=== PATIENT | male | born 1965 | race Caucasian/White ===

== ENCOUNTER 2016-05-03 15:53 | Outpatient (CLI) | payer MEDICAID | END 2016-05-03 15:54 | disposition home or self-care (01) | DX: H26.9 Unspecified cataract (principal); E10.9 Type 1 diabetes mellitus without complications ==

== ENCOUNTER 2016-10-20 11:23 | Outpatient (CLI) | payer MEDICAID ==
[2016-10-20 12:28] LABS: ALBUMIN/GLOBULIN RATIO 1.3 (1.0-2.2); BILIRUBIN,TOTAL 0.8 mg/dL (0.2-1.0); BUN - BLOOD UREA NITROGEN 12 mg/dL (6-20); CALCIUM 8.9 mg/dL (8.5-10.3); CARBON DIOXIDE - CO2 26 mmol/L (21-32); CHLORIDE 105 mmol/L (101-111); CHOL/HDL RATIO 4.2 (<5.0); CHOLESTEROL 163 mg/dL; CREATININE 0.9 mg/dL (0.6-1.2); GFR - MDRD 89 (>89); GLUCOSE 209 mg/dL (70-100); HDL CHOLESTEROL 39 mg/dL; POTASSIUM 4.4 mmol/L (3.5-5.0); SODIUM 139 mmol/L (135-145); TRIGLYCERIDES 236 mg/dL; VLDL CHOLESTEROL 47 mg/dL
[2016-10-24 23:57] LABS: HSV 1/2 IGM INDEX <0.90 INDEX (()); HSV 2 IGG INDEX <0.90 INDEX (())
== END 2016-10-20 11:24 | disposition home or self-care (01) ==
LOC: LAB 11:23
PROVIDERS: ATTEND Nurse Practitioner Family
DX: Z11.3 Encounter for screening for infections with a predominantly sexual mode of transmission (principal); E10.9 Type 1 diabetes mellitus without complications
CPT/HCPCS: 36415; 80053; 80061; 86694; 86695; 86696; 86803; 87389

== ENCOUNTER 2016-12-07 10:57 | Outpatient (CLI) | payer MEDICAID | END 2016-12-07 10:58 | disposition home or self-care (01) | LOC: LAB 10:57 | PROVIDERS: ATTEND Nurse Practitioner Family | DX: E03.9 Hypothyroidism, unspecified (principal) | CPT/HCPCS: 36415; 84443 ==

== ENCOUNTER 2017-11-27 11:15 | Outpatient (CLI) | payer MEDICAID | END 2017-11-27 11:16 | disposition home or self-care (01) | LOC: SC 11:15 | PROVIDERS: ATTEND Internal Medicine Pulmonary Disease | DX: G47.30 Sleep apnea, unspecified (principal); G47.10 Hypersomnia, unspecified; R06.83 Snoring; G47.8 Other sleep disorders | CPT/HCPCS: 99203; 99212 ==

== ENCOUNTER 2018-01-15 13:14 | Outpatient (CLI) | payer MEDICAID | END 2018-01-15 13:15 | disposition home or self-care (01) | LOC: SC 13:14 | PROVIDERS: ATTEND Internal Medicine Pulmonary Disease | DX: G47.33 Obstructive sleep apnea (adult) (pediatric) (principal) | CPT/HCPCS: 99212; 99213 ==

== ENCOUNTER 2018-04-03 10:12 | Outpatient (CLI) | payer MEDICAID ==
[2018-04-03 10:41] LABS: ALBUMIN 3.8 g/dL (3.2-5.5); ALBUMIN/GLOBULIN RATIO 1.1 (1.0-2.2); ALKALINE PHOSPHATASE 95 IU/L (42-121); ALT ALANINE AMINOTRANSFERASE 16 IU/L (10-60); AST ASPARTATE AMINOTRANSFERASE 21 IU/L (10-42); BILIRUBIN,TOTAL 0.5 mg/dL (0.2-1.0); BUN - BLOOD UREA NITROGEN 13 mg/dL (6-20); CALCIUM 8.8 mg/dL (8.5-10.3); CARBON DIOXIDE - CO2 25 mmol/L (21-32); CHLORIDE 103 mmol/L (101-111); CHOL/HDL RATIO 3.1 (<5.0); CHOLESTEROL 120 mg/dL; CREATININE 1.1 mg/dL (0.6-1.2); GFR - MDRD 71 (>89); GLUCOSE 265 mg/dL (70-100); HDL CHOLESTEROL 39 mg/dL; LDL CHOLESTEROL,CALCULATED 55 mg/dL; LDL/HDL RATIO 1.4 (<3.6); SODIUM 139 mmol/L (135-145); TOTAL PROTEIN 7.4 g/dL (6.7-8.2); VLDL CHOLESTEROL 26 mg/dL
[2018-04-03 10:47] LABS: HB2 TOTAL 14.4 g/dL; HEMOGLOBIN A1C 1.08 g/dL
== END 2018-04-03 10:13 | disposition home or self-care (01) ==
LOC: LAB 10:12
PROVIDERS: ATTEND Nurse Practitioner Family
DX: E10.9 Type 1 diabetes mellitus without complications (principal); E78.1 Pure hyperglyceridemia
CPT/HCPCS: 36415; 80053; 80061; 82043; 83036; 83721; 84443

== ENCOUNTER 2018-04-15 09:02 | Outpatient (CLI) | payer MEDICAID | END 2018-04-15 09:03 | disposition home or self-care (01) | LOC: SC 09:02 | PROVIDERS: ATTEND Internal Medicine Pulmonary Disease | DX: G47.33 Obstructive sleep apnea (adult) (pediatric) (principal) | CPT/HCPCS: 99212; 99213 ==

== ENCOUNTER 2018-07-17 08:00 | Outpatient (CLI) | payer MEDICAID ==
[2018-07-17 15:27] LABS: BASOPHILS # (AUTO) 0.1 10^3/uL (0.0-0.1); BASOPHILS % (AUTO) 0.6 %; EOSINOPHILS # (AUTO) 0.4 10^3/uL (0.0-0.7); EOSINOPHILS % (AUTO) 3.7 %; HGB - HEMOGLOBIN 14.3 g/dL (14.0-18.0); LYMPHOCYTES # (AUTO) 1.6 10^3/uL (1.5-3.5); MEAN CORPUSCULAR HEMOGLOBIN 27.7 pg (27.0-31.0); MEAN CORPUSCULAR HGB CONC 32.3 g/dL (32.0-36.0); MEAN CORPUSCULAR VOLUME 85.7 fL (80.0-94.0); MEAN PLATELET VOLUME 8.5 fL (7.4-11.4); MONOCYTES # (AUTO) 0.7 10^3/uL (0.0-1.0); MONOCYTES % (AUTO) 6.8 %; NEUTROPHILS # (AUTO) 7.7 10^3/uL (1.5-6.6); NEUTROPHILS % (AUTO) 73.9 %; PLT - PLATELET COUNT 260 10^3/uL (130-450); RED BLOOD COUNT 5.17 10^6/uL (4.70-6.10); RED CELL DISTRIBUTION WIDTH 15.4 % (12.0-15.0); WHITE BLOOD COUNT 10.5 x10^3/uL (4.8-10.8)
[2018-07-17 15:56] LABS: MICROALBUM/CREATININE RATIO,UR 15.8 ug/mg (<30.0); MICROALBUMIN,URINE 0.6 mg/dL (0-300.0)
[2018-07-17 16:27] LABS: HB2 TOTAL 15.7 g/dL; HEMOGLOBIN A1C 1.21 g/dL; HEMOGLOBIN A1C % 9.2 % (4.6-6.2)
== END 2018-07-17 23:59 | disposition home or self-care (01) ==
LOC: LAB.WCP 08:00
PROVIDERS: ATTEND Family Medicine
DX: E10.9 Type 1 diabetes mellitus without complications (principal); E03.9 Hypothyroidism, unspecified
CPT/HCPCS: 36415; 80048; 82043; 82570; 83036; 84443; 85025

== ENCOUNTER 2018-09-11 12:32 | Emergency (ER) | payer MEDICAID ==
[2018-09-11 12:40] VITALS: BP 115/63
--- NOTE | 2018-09-11 12:42 | ED Physician Documentation ---
PD HPI BACK INJURY - Stated complaint Stated Complaint: RT SIDE BACK PX - History obtained from History obtained from: Patient - History of Present Illness Location: Right, Upper (lower thoracic to scapular area on right back.) Type of injury: Twist (He was raking the yard and had an abrupt onset of pain in the right infrascapular and lower thoracic area. He denies pulling hard per se. There is no direct fall or impact. He states the pain is worse with movement of the shoulder girdle and also with inspiration. It hurts with movement of the trunk. He denies any radiation of the pain to the abdomen. It does feel like it goes up towards the upper shoulder and upper thoracic area. He denies prior similar episodes to this degree. He states he has had some muscular pain in the area over the last several days doing yard work. He denies any cough or shortness of breath.) Where injury occurred: Home Timing - onset: Today Timing - details: Abrupt onset, Still present Quality: Pain, Spasm Worsened by: Moving Associated symptoms: No: Fever, Weakness, Numbness Contributing factors: No: Prior back surgery, Work related Similar symptoms before: Has not had sx before Review of Systems Constitutional: denies: Fever Nose: denies: Rhinorrhea / runny nose, Congestion Throat: denies: Sore throat Cardiac: denies: Chest pain / pressure, Palpitations Respiratory: denies: Dyspnea, Cough GI: denies: Nausea, Vomiting Neurologic: denies: Near syncope, Syncope, Altered mental status PD PAST MEDICAL HISTORY - Past Medical History Cardiovascular: Hypertension, [place] Respiratory: Asthma Endocrine/Autoimmune: Type 1 diabetes GI: GERD : None HEENT: Chronic sinusitis Psych: None Musculoskeletal: Other - Past Surgical History Past Surgical History: Yes Ortho: Spine surgery - Present Medications Home Medications: Ambulatory Orders Medication Instructions Recorded Confirmed Amitriptyline [Elavil] 50 mg ORAL DAILY 04/17/15 12/22/15 Hydroxychloroquine [Plaquenil] 100 mg ORAL DAILY 04/17/15 12/22/15 Insulin U500 30 - 40 units SUBQ DAILY 04/17/15 12/22/15 Levothyroxine [Synthroid] 50 mcg ORAL DAILY 04/17/15 12/22/15 Lisinopril 20 mg ORAL DAILY 04/17/15 12/22/15 Metoprolol Succinate 50 mg ORAL DAILY 04/17/15 12/22/15 Montelukast [Singulair] 10 mg ORAL DAILY 04/17/15 12/22/15 Nitroglycerin [Nitrostat] 0.4 mg SL Q5MIN PRN 04/17/15 12/22/15 Simvastatin 40 mg ORAL DAILY 04/17/15 12/22/15 Ubidecarenone/Vitamin E Mixed 100 mg PO DAILY 04/17/15 12/22/15 [[id number] 100 mg-10 Unit Sfg] Isosorbide Mononitrate ER [Imdur] 30 mg PO DAILY #30 tablet 12/22/15 Nitroglycerin [Nitrostat] 0.4 mg SL Q5MIN PRN #30 tablet 12/22/15 Methocarbamol [Robaxin] 500 mg PO Q6H PRN #30 tablet 09/11/18 dexAMETHasone [Decadron] 4 mg PO DAILY #5 tablet 09/11/18 - Allergies Allergies/Adverse Reactions: Allergies Allergy/AdvReac Type Severity Reaction Status Date / Time Opioids - Morphine Analogues AdvReac Severe Nausea Verified 04/17/15 13:49 Opioids-Meperidine and AdvReac Severe Nausea Verified 04/17/15 13:49 Related [Opioids-Meperidine & Related] Opioids-Methadone and Related AdvReac Severe Nausea Verified 04/17/15 13:49 [Opioids-Methadone & Related] metformin AdvReac Unknown Verified 04/17/15 07:45 antiemtics AdvReac Nausea Uncoded 04/17/15 13:45 black jennifer AdvReac Respiratory Uncoded 09/12/18 07:56 - Social History Does the pt smoke?: No Smoking Status: Never smoker Does the pt drink ETOH?: No Does the pt have substance abuse?: No - Immunizations Immunizations are current?: Yes PD ED PE NORMAL - Vitals Vital signs reviewed: Yes - General General: Alert and oriented X 3, Well developed/nourished, Other (appears uncomfortable with guarded ROM of right shoulder girdle. ) - Neck Neck: Supple, no meningeal sign, No bony TTP, No adenopathy - Cardiac Cardiac: RRR, No murmur - Respiratory Respiratory: Clear bilaterally - Abdomen Abdomen: Soft, Non tender - Back Back: No spinal TTP (tender in right parathoracic muscles at infrascapular area. No crepitance nor deformity. ) - Derm Derm: Normal color, Warm and dry - Neuro Neuro: Alert and oriented X 3, No motor deficit, Normal speech Results - Vitals Vitals: Oxygen O2 Source Room air - Rads (name of study) chest Radiology: Prelim report reviewed (no acute fractures, spine abnormalities, nor PTX. Mild retrocardiac subtle infiltrate. ), EMP read contemporaneously Departure - Departure Disposition: Home, Self Care Clinical Impression: Acute thoracic myofascial strain Qualifiers: Encounter type: initial encounter Qualified Code(s): S29.019A - Strain of muscle and tendon of unspecified wall of thorax, initial encounter Condition: Stable Record reviewed to determine appropriate education?: Yes Instructions: ED Sprain Thoracic Spine Follow-Up: Jose Bartholomew MD [Primary Care Provider] - Prescriptions: dexAMETHasone [Decadron] 4 mg PO DAILY #5 tablet Methocarbamol [Robaxin] 500 mg PO Q6H PRN #30 tablet PRN Reason: Spasms Comments: Heat and gentle range of motion and stretching. Ibuprofen or naproxen 2-3 times a day. Add Tylenol if needed for pains. Use Robaxin as needed as a muscle relaxant for stiffness. You could also try adding Decadron steroid anti- inflammatory to see if it will improve things faster. Recheck if not improving over the next several days or so. Discharge Date/Time: 09/11/18 14:18
[2018-09-11] MEDS ORDERED: KETOROLAC 30 MG/ML VIAL IM STA (13:01)
[2018-09-11] MEDS ORDERED: METHOCARBAMOL 500 MG TABLET PO STA (13:01)
[2018-09-11] MEDS ORDERED: ACETAMINOPHEN 325 MG TABLET PO STA (13:01)
--- NOTE | 2018-09-11 13:31 | XRAY Report ---
Reason: right thoracic pain while raking grass Procedure Date: 09/11/2018 Accession Number: [id number] / [id number] Procedure: XR - Chest 2 View X-Ray CPT Code: 02435 FULL RESULT: EXAM: CHEST RADIOGRAPHY EXAM DATE: 09/11/2018 01:24 PM. CLINICAL HISTORY: Right posterior chest pain after raking the grass today. Shortness of air with deep breath today. COMPARISON: None. TECHNIQUE: 2 views. FINDINGS: Lungs/Pleura: Slightly increased linear markings in the left retrocardiac distribution with bilateral airway thickening , which can be seen in the setting of bronchiolitis or reactive airways disease. No pleural effusion or pneumothorax. Mediastinum: Mild borderline enlargement of the cardiomediastinal silhouette. Other: None. IMPRESSION: Subtle increase in left retrocardiac pulmonary markings and mild airway thickening with no other evidence of acute airspace disease. RADIA
== END 2018-09-11 14:18 | disposition home or self-care (01) ==
LOC: ED 12:32
DX: S29.012A Strain of muscle and tendon of back wall of thorax, initial encounter (principal); X50.1XXA Overexertion from prolonged static or awkward postures, initial encounter; Y93.H2 Activity, gardening and landscaping; Y92.007 Garden or yard of unspecified non-institutional (private) residence as the place of occurrence of the external cause; I10 Essential (primary) hypertension; E10.9 Type 1 diabetes mellitus without complications; Z79.4 Long term (current) use of insulin
CPT/HCPCS: 71046; 96372; 99283; A9270

== ENCOUNTER 2018-10-24 | Outpatient (CLI) | payer MEDICAID | END 2018-10-24 23:59 | disposition home or self-care (01) | DX: R10.12 Left upper quadrant pain (principal) | CPT/HCPCS: 87086 ==

== ENCOUNTER 2018-10-24 11:31 | Outpatient (CLI) | payer MEDICAID ==
[2018-10-24 11:46] LABS: BASOPHILS # (AUTO) 0.1 10^3/uL (0.0-0.1); BASOPHILS % (AUTO) 0.6 %; EOSINOPHILS # (AUTO) 0.3 10^3/uL (0.0-0.7); EOSINOPHILS % (AUTO) 2.6 %; HGB - HEMOGLOBIN 14.3 g/dL (14.0-18.0); LYMPHOCYTES # (AUTO) 1.8 10^3/uL (1.5-3.5); LYMPHOCYTES % (AUTO) 14.6 %; MEAN CORPUSCULAR HEMOGLOBIN 28.1 pg (27.0-31.0); MEAN CORPUSCULAR HGB CONC 31.8 g/dL (32.0-36.0); MEAN CORPUSCULAR VOLUME 88.2 fL (80.0-94.0); MEAN PLATELET VOLUME 9.9 fL (7.4-11.4); MONOCYTES # (AUTO) 0.7 10^3/uL (0.0-1.0); NEUTROPHILS # (AUTO) 9.1 10^3/uL (1.5-6.6); NEUTROPHILS % (AUTO) 75.2 %; PLT - PLATELET COUNT 278 10^3/uL (130-450); RED BLOOD COUNT 5.09 10^6/uL (4.70-6.10); RED CELL DISTRIBUTION WIDTH 14.1 % (12.0-15.0); WHITE BLOOD COUNT 12.1 x10^3/uL (4.8-10.8)
[2018-10-24 12:20] LABS: BILIRUBIN,TOTAL 0.8 mg/dL (0.2-1.0); CALCIUM 9.7 mg/dL (8.5-10.3); TOTAL PROTEIN 7.9 g/dL (6.7-8.2)
--- NOTE | 2018-10-24 15:17 | XRAY Report ---
Reason: ABDOMINAL PAIN, LUQ Procedure Date: 10/24/2018 Accession Number: [id number] / [id number] Procedure: XR - Abdomen Acute CPT Code: FULL RESULT: EXAM: ABDOMINAL SERIES AND PA CHEST EXAM DATE: 10/24/2018 12:20 PM. CLINICAL HISTORY: Abdominal pain, left upper quadrant. COMPARISON: CHEST 2 VIEW 09/11/2018 1:08 PM ABDOMEN/PELVIS W/ 04/17/2015 9:18 AM. TECHNIQUE: 2 views abdomen and 1 view chest. FINDINGS: CHEST: Lungs/Pleura: No focal opacities. No effusion or pneumothorax. Mediastinum: Heart size and mediastinal contour are stable. Changes again seen from inferior cervical fusion. Degenerative changes of the right shoulder. Right lateral rib fractures which may be old. ABDOMEN: Bowel Gas Pattern: Mild gaseous distention of small bowel and colon. Moderate volume of stool in the colon. No portal venous gas or pneumatosis. Free Air: None. Other: Degenerative changes. IMPRESSION: 1. No acute disease in the chest. 2. No bowel obstruction. 3. Moderate volume of stool in the colon. RADIA
== END 2018-10-24 11:32 | disposition home or self-care (01) ==
LOC: LAB 11:31 → DI 11:32
PROVIDERS: ATTEND Family Medicine
DX: R10.12 Left upper quadrant pain (principal)
CPT/HCPCS: 36415; 74022; 80053; 82150; 83690; 85025; 87086

== ENCOUNTER 2018-12-09 08:00 | Outpatient (CLI) | payer MEDICAID ==
[2018-12-09 11:50] LABS: BASOPHILS # (AUTO) 0.1 10^3/uL (0.0-0.1); BASOPHILS % (AUTO) 0.5 %; EOSINOPHILS # (AUTO) 0.4 10^3/uL (0.0-0.7); EOSINOPHILS % (AUTO) 3.2 %; HGB - HEMOGLOBIN 13.7 g/dL (14.0-18.0); LYMPHOCYTES # (AUTO) 1.8 10^3/uL (1.5-3.5); LYMPHOCYTES % (AUTO) 16.5 %; MEAN CORPUSCULAR HGB CONC 30.3 g/dL (32.0-36.0); MEAN CORPUSCULAR VOLUME 92.2 fL (80.0-94.0); MEAN PLATELET VOLUME 10.2 fL (7.4-11.4); MONOCYTES # (AUTO) 0.7 10^3/uL (0.0-1.0); MONOCYTES % (AUTO) 6.5 %; NEUTROPHILS % (AUTO) 72.3 %; PLT - PLATELET COUNT 254 10^3/uL (130-450); RED CELL DISTRIBUTION WIDTH 14.7 % (12.0-15.0)
[2018-12-09 12:27] LABS: ALBUMIN 4.1 g/dL (3.2-5.5); ALBUMIN/GLOBULIN RATIO 1.2 (1.0-2.2); ALKALINE PHOSPHATASE 85 IU/L (42-121); ALT ALANINE AMINOTRANSFERASE 18 IU/L (10-60); AST ASPARTATE AMINOTRANSFERASE 14 IU/L (10-42); BILIRUBIN,TOTAL 0.4 mg/dL (0.2-1.0); BUN - BLOOD UREA NITROGEN 46 mg/dL (6-20); CALCIUM 8.8 mg/dL (8.5-10.3); CARBON DIOXIDE - CO2 22 mmol/L (21-32); CHLORIDE 108 mmol/L (101-111); CHOLESTEROL 148 mg/dL; CREATININE 1.2 mg/dL (0.6-1.2); GFR - MDRD 64 (>89); GLUCOSE 253 mg/dL (70-100); HDL CHOLESTEROL 37 mg/dL; SODIUM 136 mmol/L (135-145); TOTAL PROTEIN 7.4 g/dL (6.7-8.2)
[2018-12-09 12:47] LABS: LDL CHOLESTEROL,DIRECT 64 mg/dL; LDLD/HDL RATIO 1.7 (<3.6)
== END 2018-12-09 23:59 | disposition home or self-care (01) ==
LOC: LAB.N 08:00
PROVIDERS: ATTEND Family Medicine
DX: I95.9 Hypotension, unspecified (principal)
CPT/HCPCS: 36415; 80053; 80061; 83721; 84443; 85025

== ENCOUNTER 2018-12-11 13:36 | Emergency (ER) | payer MEDICAID ==
[2018-12-11 13:44] VITALS: BP 116/70
[2018-12-11 14:06] LABS: BASOPHILS # (AUTO) 0.1 10^3/uL (0.0-0.1); EOSINOPHILS # (AUTO) 0.3 10^3/uL (0.0-0.7); EOSINOPHILS % (AUTO) 3.6 %; HGB - HEMOGLOBIN 14.2 g/dL (14.0-18.0); LYMPHOCYTES # (AUTO) 1.6 10^3/uL (1.5-3.5); LYMPHOCYTES % (AUTO) 17.4 %; MEAN CORPUSCULAR HGB CONC 32.5 g/dL (32.0-36.0); MEAN CORPUSCULAR VOLUME 89.4 fL (80.0-94.0); MEAN PLATELET VOLUME 9.6 fL (7.4-11.4); MONOCYTES # (AUTO) 0.6 10^3/uL (0.0-1.0); MONOCYTES % (AUTO) 6.2 %; NEUTROPHILS # (AUTO) 6.6 10^3/uL (1.5-6.6); NEUTROPHILS % (AUTO) 70.3 %; PLT - PLATELET COUNT 251 10^3/uL (130-450); RED BLOOD COUNT 4.89 10^6/uL (4.70-6.10); RED CELL DISTRIBUTION WIDTH 14.3 % (12.0-15.0); WHITE BLOOD COUNT 9.4 x10^3/uL (4.8-10.8)
[2018-12-11 14:20] LABS: ALBUMIN 4.1 g/dL (3.2-5.5); ALBUMIN/GLOBULIN RATIO 1.1 (1.0-2.2); BILIRUBIN,TOTAL 0.5 mg/dL (0.2-1.0); CALCIUM 8.9 mg/dL (8.5-10.3)
--- NOTE | 2018-12-11 14:57 | ED Physician Documentation ---
History of Present Illness - Stated complaint Stated Complaint: LOW BLOOD PRESSURE - Chief complaint Chief Complaint: General - History obtained from History obtained from: Patient - History of Present Illness Timing: Other (For the last year or so he has had dizzy episodes when he stands up. They are generally getting worse. His diabetes has been generally controlled with blood sugars at most 200. He is not on a diuretic. He does take lisinopril and metoprolol daily. No recent dose changes. He says he has not been eating and drinking as well since his mother a couple of months ago.) Review of Systems Constitutional: reports: Reviewed and negative Cardiac: reports: Reviewed and negative. denies: Chest pain / pressure, Palpitations Respiratory: denies: Dyspnea, Cough PD PAST MEDICAL HISTORY - Past Medical History Cardiovascular: Hypertension, [place] Respiratory: Asthma Endocrine/Autoimmune: Type 1 diabetes GI: GERD : None HEENT: Chronic sinusitis Psych: None Musculoskeletal: Other - Past Surgical History Past Surgical History: Yes Ortho: Spine surgery - Present Medications Home Medications: Ambulatory Orders Medication Instructions Recorded Confirmed Amitriptyline [Elavil] 50 mg ORAL DAILY 04/17/15 12/22/15 Hydroxychloroquine [Plaquenil] 100 mg ORAL DAILY 04/17/15 12/22/15 Insulin U500 30 - 40 units SUBQ DAILY 04/17/15 12/22/15 Levothyroxine [Synthroid] 50 mcg ORAL DAILY 04/17/15 12/22/15 Lisinopril 20 mg ORAL DAILY 04/17/15 12/22/15 Metoprolol Succinate 50 mg ORAL DAILY 04/17/15 12/22/15 Montelukast [Singulair] 10 mg ORAL DAILY 04/17/15 12/22/15 Nitroglycerin [Nitrostat] 0.4 mg SL Q5MIN PRN 04/17/15 12/22/15 Simvastatin 40 mg ORAL DAILY 04/17/15 12/22/15 Ubidecarenone/Vitamin E Mixed 100 mg PO DAILY 04/17/15 12/22/15 [[id number]-[id number] E 100 mg-10 Unit Sfg] Isosorbide Mononitrate ER [Imdur] 30 mg PO DAILY #30 tablet 12/22/15 Nitroglycerin [Nitrostat] 0.4 mg SL Q5MIN PRN #30 tablet 12/22/15 Methocarbamol [Robaxin] 500 mg PO Q6H PRN #30 tablet 09/11/18 dexAMETHasone [Decadron] 4 mg PO DAILY #5 tablet 09/11/18 - Allergies Allergies/Adverse Reactions: Allergies Allergy/AdvReac Type Severity Reaction Status Date / Time Opioids - Morphine Analogues AdvReac Severe Nausea Verified 12/11/18 13:44 Opioids-Meperidine and AdvReac Severe Nausea Verified 12/11/18 13:44 Related [Opioids-Meperidine & Related] Opioids-Methadone and Related AdvReac Severe Nausea Verified 12/11/18 13:44 [Opioids-Methadone & Related] metformin AdvReac Unknown Verified 12/11/18 13:44 antiemtics AdvReac Nausea Uncoded 12/11/18 13:44 black jennifer AdvReac Respiratory Uncoded 12/11/18 13:44 - Social History Does the pt smoke?: No Smoking Status: Never smoker Does the pt drink ETOH?: No Does the pt have substance abuse?: No - Immunizations Immunizations are current?: Yes PD ED PE NORMAL - Vitals Vital signs reviewed: Yes - General General: Alert and oriented X 3, No acute distress - Neck Neck: Supple, no meningeal sign, No bony TTP - Cardiac Cardiac: RRR, No murmur - Respiratory Respiratory: No respiratory distress, Clear bilaterally - Abdomen Abdomen: Non tender - Extremities Extremities: No edema, No calf tenderness / cord - Neuro Neuro: Alert and oriented X 3 (This is a 53-year-old gentleman with subacute orthostasis.), Normal speech Results - Vitals Vitals: Vital Signs - 24 hr 12/11/18 13:40 Temperature 36.4 C L Heart Rate 92 Respiratory 19 Rate Blood Pressure 116/70 O2 Saturation 97 Oxygen O2 Source Room air - Labs Labs: Laboratory Tests 12/11/18 12/11/18 13:58 13:58 WBC 9.4 RBC 4.89 Hgb 14.2 Hct 43.7 MCV 89.4 MCH 29.0 MCHC 32.5 RDW 14.3 Plt Count 251 MPV 9.6 Neut # (Auto) 6.6 Lymph # (Auto) 1.6 Ellis # (Auto) 0.6 Eos # (Auto) 0.3 Baso # (Auto) 0.1 Absolute Nucleated RBC 0.00 Nucleated RBC % 0.0 Sodium 137 Potassium 5.3 H Chloride 108 Carbon Dioxide 21 Anion Gap 8.0 BUN 24 H Creatinine 1.0 Estimated GFR (MDRD) 78 L Glucose 194 H Calcium 8.9 Total Bilirubin 0.5 AST 23 ALT 23 Alkaline Phosphatase 97 Total Creatine Kinase 156 Total Protein 8.0 Albumin 4.1 Globulin 3.9 Albumin/Globulin Ratio 1.1 Lipase 67 H PD MEDICAL DECISION MAKING - ED course ED course: This is a 53-year-old gentleman on 2 antihypertensives with orthostasis. His blood pressure he saw at home was 98/58. He was orthostatic I guess that the physical therapist office today. His BUN is up and mild hyperkalemia. Offered IV fluids, he prefers to go home and cut his lisinopril dose. This is not unreasonable. Departure - Departure Disposition: Home, Self Care Clinical Impression: Orthostasis Condition: Good Record reviewed to determine appropriate education?: Yes Instructions: ED Hypotension Orthostatic Comments: Drink plenty fluids. Cut your lisinopril dose in half. Follow-up with your doctor on Sunday or Sunday for further evaluation and treatment.
== END 2018-12-11 15:03 | disposition home or self-care (01) ==
LOC: ED 13:36
DX: I95.1 Orthostatic hypotension (principal); E87.5 Hyperkalemia; R79.89 Other specified abnormal findings of blood chemistry; E10.9 Type 1 diabetes mellitus without complications; I10 Essential (primary) hypertension
CPT/HCPCS: 36415; 80053; 82550; 83690; 85025; 99283

== ENCOUNTER 2019-02-27 09:44 | Outpatient (CLI) | payer MEDICARE, MEDICAID ==
--- NOTE | 2019-02-28 13:01 | Ultrasound Report ---
Reason: INJURY OF THYROID GLAND, MUSCLE SPASM Procedure Date: 02/27/2019 Accession Number: [id number] / [id number] Procedure: US - Head or Neck Soft Tissue CPT Code: Final Report FULL RESULT: EXAM: THYROID ULTRASOUND EXAM DATE: 02/27/2019 10:14 AM. CLINICAL HISTORY: Injury of thyroid gland, muscle spasm. Hypothyroidism. Sore throat for 3 months. COMPARISON: None. TECHNIQUE: Real time sonographic imaging of the thyroid was performed by the sound effects technician. Multiple tax compliance representative static images were saved for review. FINDINGS: THYROID GLAND: Right Lobe: 3.4 x 1.2 x 1.1 cm, volume 2.3 cc. Normal background echotexture. Right Lobe Nodules: None. Left Lobe: 3.8 x 1.2 x 1.5 cm, volume 3.6 cc. Normal background echotexture. Left Lobe Nodules: None. Isthmus: 0.3 cm AP. Isthmic Nodules: None. LYMPH NODES: No adenopathy demonstrated in the central or lateral compartment. OTHER: None. IMPRESSION: 1. Slightly smaller than expected thyroid volume. Otherwise normal sonographic appearance of the thyroid gland parenchyma. No thyroid nodules. Management recommendations are based on 2015 [place] [employer] Management Guidelines for Adult Patients with Thyroid Nodules and Differentiated Thyroid Cancer. RADIA
== END 2019-02-27 09:45 | disposition home or self-care (01) ==
LOC: DI 09:44
PROVIDERS: ATTEND Otolaryngology
DX: M62.838 Other muscle spasm (principal)
CPT/HCPCS: 76536

== ENCOUNTER 2019-06-17 17:35 | Outpatient (CLI) | payer MEDICARE, OTHER ==
[2019-06-17 21:36] LABS: TRICHOMONAS VAGINALIS DNA NEGATIVE (NEGATIVE)
[2019-06-18 10:54] LABS: HIV AG/AB 4TH GEN NON-REACTIVE (NON-REACTIVE)
[2019-06-18 12:05] LABS: HEPATITIS C ANTIBODY NON-REACTIVE (NON-REACTIVE)
[2019-06-19 11:04] LABS: HSV 2 IGG TYPE SPECIFIC AB <0.90 index
== END 2019-06-17 17:36 | disposition home or self-care (01) ==
LOC: LAB 17:35
PROVIDERS: ATTEND Family Medicine
DX: Z20.2 Contact with and (suspected) exposure to infections with a predominantly sexual mode of transmission (principal)
CPT/HCPCS: 36415; 86592; 86695; 86696; 86803; 87491; 87591; 87661; G0475; 81599; 87389

== ENCOUNTER 2019-09-09 20:41 | Outpatient (CLI) | payer MEDICARE | END 2019-09-09 20:42 | disposition home or self-care (01) | LOC: SC 20:41 | PROVIDERS: ATTEND Internal Medicine Pulmonary Disease | DX: G47.33 Obstructive sleep apnea (adult) (pediatric) (principal); G47.61 Periodic limb movement disorder | CPT/HCPCS: 95810 ==

== ENCOUNTER 2019-09-12 09:43 | Outpatient (CLI) | payer MEDICARE ==
[2019-09-12 11:50] LABS: ALBUMIN/GLOBULIN RATIO 1.1 (1.0-2.2); BILIRUBIN,TOTAL 0.5 mg/dL (0.2-1.0); CALCIUM 9.3 mg/dL (8.5-10.3); CREATININE 0.8 mg/dL (0.6-1.2); TOTAL PROTEIN 7.8 g/dL (6.7-8.2)
== END 2019-09-12 23:59 | disposition home or self-care (01) ==
LOC: LAB.WCP 09:43
PROVIDERS: ATTEND Family Medicine
DX: I10 Essential (primary) hypertension (principal)
CPT/HCPCS: 36415; 80053

== ENCOUNTER 2019-09-18 11:02 | Outpatient (CLI) | payer MEDICARE, OTHER ==
[2019-09-18 12:07] VITALS: BP 150/70
--- NOTE | 2019-09-18 12:07 | SLEEP CARE CONSULTATION ---
Information from patient questionnaire entered by Rowena Chairez. I have reviewed and concur with the information entered by Rowena Chairez. This document represents the service I personally performed and the decisions made by me, Ricarda Galvin, RN, MSN, AUDIT ANALYST. History of Present Illness Service Date and Time: 09/18/2019 1102 Initial [place] Sleepiness Scale score: 12 (in 2018) Current [place] Sleepiness Scale score: 14 Additional HPI information: [place] SOLIMAN returns for follow up and results of the recently performed polysomnography to requalify for CPAP treatment. He used the Novopyxisstation and would like to have same device and a nasal mask. I explained the pathophysiology behind obstructive sleep apnea. We then spent quite a bit of time discussing different treatment options. For mild obstructive sleep apnea, surgery and oral appliance are alternatives to nasal CPAP therapy but in moderate or severe cases, nasal CPAP is the most effective and reliable treatment. I reviewed the impact of weight changes on sleep apnea and strongly recommended losing weight. After some discussion, the patient opted to go with the nasal CPAP therapy. Nasal autoCPAP set at [id number] will be ordered with rationale explained. A manual titration study will be ordered if unable to find optimal pressure with office adjustments. Using CPAP every night in order to get used to it was emphasized. Patient advised to put CPAP mask on before getting into bed so as not to fall asleep without CPAP. The patient was instructed to call the CPAP supplier to discuss any mechanical problem that may occur. If the mask given is uncomfortable or is difficult to keep on through the night even with adjustment, contact the CPAP supplier as many will replace with another mask style if notified before 30 days. If snoring or perceives is not getting enough air or too much air from the machine, notify this office. Patient counseled not drink alcohol less than 4 hours before bedtime as it can increase snoring and apnea. Patient does not drink alcohol. Patient was cautioned about risks of drowsy driving until sleepiness symptoms resolve. Sleep Study - Results Polysomnography/Home Sleep Study results: The quality of the study is good. The patient had slightly reduced sleep efficiency due to a few awakenings after the sleep onset. Despite moderate sleep fragmentation, the sleep architecture was normal. Respiratory monitoring showed moderate obstructive sleep apnea-hypopnea (AHI = 22.8) associated with frequent arousals, oxyhemoglobin desaturation and moderate hypoxia (becky oxygen saturation of 68%). Baseline oxygen saturation was normal. The respiratory events occurred mainly during REM sleep (supine AHI = 37.8; non-supine = 22.16). Snore was loud in intensity. There was moderate periodic leg movement of sleep not contributing to the sleep fragmentation. Cardiac rhythm was normal sinus rhythm without significant arrhythmia. No abnormal behavior (parasomnia) observed during the night. CONCLUSIONS and RECOMMENDATIONS: 1. The patient has moderate obstructive sleep apnea-hypopnea. ICD-10 G47.33. Positive airway pressure therapy is indicated. Other types of therapy such as upper airway surgery and oral appliance may be considered depending of clinical findings. A follow up manual CPAP/bi-level titration study is recommended to find the optimal treatment pressure if positive airway pressure therapy is going to be utilized. With BMI of 35.8 Kg/M2, weight loss is also recommended. 2. Periodic leg movement (ICD G47.61), moderate, treatment may be indicated. Clinical correlation advised. Electronically signed by: Stanley Nugent M.D. Diplomate, [place] [employer] Allergies and Home Medications Known drug allergies: Yes Home medication list reviewed: No (Stopped cosentyx) Review of Systems Review of systems same as previous: No (syncope sunday - PCP appointment in am) Physical Exam Blood Pressure: 150/70 Cuff size: long Heart Rate: 79 O2 Saturation: 96 Height: 5 ft 10 in Weight: 246 lb Body Mass Index: 35.3 BMI Classification: Obese Impression and Plan 1. Obstructive Sleep Apnea-Hypopnea Syndrome, moderate, with lowest oxygen saturation of 68%. Obviously this is the cause of the patients symptoms of unrefreshed sleep, and excessive daytime sleepiness. Positive pressure therapy could benefit hypertension. As mentioned above, the patient will be re -started on nasal autoCPAP therapy with pressure set at 5-15 cmH2O. A manual titration study will be completed if unable to find optimal treatment pressure with office adjustments. Compliance guidelines also reviewed. A copy of compliance guidelines will be given for reference at check out. Because the apnea is more severe supine, I instructed to avoid sleeping supine using pillow positioning until able to start CPAP use. 2. Periodic limb movement, moderate, that did not fragment patients sleep. Margarette odic limb movement of sleep (PLMS) is characterized by episodes of repetitive limb movements that occur during sleep and usually involve the lower limbs. The etiology is unknown but can be associated with restless leg syndrome (RLS), neuropathy, spinal cord diseases, kidney disease, rheumatological disorders, narcolepsy, obstructive sleep apnea, and REM sleep behavior disorder. Other factors that can increase PLMS and/or RLS are heredity and iron deficiency as reflected by a low serum ferritin level below 50 to 75mcg / L. Several medications can precipitate or aggravate PLMS such as selective serotonin re- uptake inhibitor antidepressants, tricyclic antidepressants, lithium, and dopamine receptor antagonists with the exception of bupropion. Caffeine can also aggravate PLMS and should be avoided. Sleep hygiene methods can also improve sleep as well as lifestyle changes such as regular exercise. Patient was advised that his back discomfort could be contributing to his PLMS and to follow up for further evaluation. * Nasal auto CPAP therapy, pressure at 5-15 cm H2O. * Attempt to lose weight. * Avoid alcohol consumption near bedtime. * Avoid supine sleep until using CPAP. * Follow up with PCP for further evaluation of PLMS / back pain * The patient is again cautioned about driving until sleepiness completely resolves. * Return one month after CPAP obtained. I will assess response to therapy and compliance at that time. Visit Type: In Office Time Spent with Patient (minutes): 20 Provider Statement: I spent 100% of the Face to Face Visit with the patient with greater than 50% spent counseling the patient and coordination of care.
== END 2019-09-18 11:03 | disposition home or self-care (01) ==
LOC: SC 11:02
PROVIDERS: ATTEND Nurse Practitioner Family
DX: G47.33 Obstructive sleep apnea (adult) (pediatric) (principal); G47.61 Periodic limb movement disorder; E66.9 Obesity, unspecified; Z68.35 Body mass index [BMI] 35.0-35.9, adult
CPT/HCPCS: 99213; G0463; 99212

== ENCOUNTER 2019-12-24 10:06 | Outpatient (CLI) | payer MEDICARE, OTHER ==
--- NOTE | 2019-12-24 10:18 | SLEEP CARE CONSULTATION ---
Information from patient questionnaire entered by Rowena Chairez. I have reviewed and concur with the information entered by Rowena Chairez. This document represents the service I personally performed and the decisions made by , Annemarie Tinajero ARNP. History of Present Illness Service Date and Time: 12/24/2019 1000 Previous diagnosis: Moderate, Obstructive Sleep Apnea-Hypopnea Syndrome AHI: 22.8 (in 2020) Reason for follow up: other (follow up pressure change) Equipment type: CPAP Equipment obtained from: [facility] (getting supplies as needed) Mask style: Nasal Backup mask available: Yes (old mask) Last cushion change: 1 month Prior sleep studies: Yes Year and Where: 2018 - [facility] HPI additional information: [place] SOLIMAN was diagnosed to have moderate, AHI 22.8, obstructive sleep apnea-hypopnea syndrome and we talked over VIAP for CPAP therapy one month pressure change follow-up. Sleep Study - Results Prior sleep studies: Yes Year and Where: 2018 - [facility] CPAP Compliance Data - Data Reviewed with Patient Average duration of nightly device use: 7.2 Compliance rate %: 90 Current pressure setting (cmH2O): 6-10 Humidity settin Heated hose settin Average residual AHI: 3.7 Central apnea: 0.3 Obstructive apnea: 0.6 Average large leak: 5 min 41 sec Subjective Patient concerns: denies: aerophagia, mask discomfort, air blowing in eyes, mask leak noise, condensation in mask/hose, nasal congestion, dry mouth, nose, throat, epistaxis, other Observed to snore while using device: No Current pressure setting perceived as: comfortable On therapy, patient: reports: sleeping better, awakening more refreshed, being more awake and alert during the day, more rested overall. denies: drowsiness while driving Initial [place] Sleepiness Scale score: 12 (in 2018) Allergies and Home Medications Drug allergies reviewed: Yes (morphine, opiods) Home medication list reviewed: Yes (Humalog Lispro, 200 units/mL) Review of Systems Review of systems same as previous: No (trying a new insulin, that is not working as well as hoped) Physical Exam Vital signs obtained and entered by: Not obtained - Videomed appointment Height: 5 ft 10 in Impression and Plan 1. Obstructive Sleep Apnea-Hypopnea Syndrome, moderate, with good treatment compliance and good apnea control. On CPAP therapy, the patient has better sleep quality and is more rested overall. His is doing well with the change in pressure and feels like the pressure is comfortable. His residual apnea is 3.7. 2. Obesity, unspecified. Currently patients BMI is 35.3. Obesity increases the risk of apnea, CPAP pressure requirements and overall health risks especially cardiovascular and diabetes. Thus patient is advised to try to lose weight. The BMI chart was reviewed. Symptoms to report for additional pressure adjustment discussed. Patient's apnea severity and rationale for treatment to reduce apnea, improve sleep quality and reduce cardiovascular and cerebrovascular events was reviewed. I also reviewed the benefit of consistent device use of CPAP for hypertension, cardiac disease, and diabetes. * Continue auto CPAP pressure at 6-10 cmH2O * Notify me if snoring with mask or feeling that the pressure is too much or too little * Attempt to lose weight * Call this office if any problems using CPAP * Return for follow up in 1 year, or sooner if concerns arise Counseling Topics: Weight loss health impact Visit Type: Telehealth Video Video Type: VIAP Patient Location: Car Location of Provider: Office Patient agrees and consents to this telehealth visit type: Yes Patient agrees to have their insurance billed: Yes Time Spent with Patient (minutes): 15 Provider Statement: I spent 100% of the Telehealth Video Call with the patient with greater than 50% spent counseling the patient and coordination of care.
== END 2019-12-24 10:07 | disposition home or self-care (01) ==
LOC: SC 10:06
PROVIDERS: ATTEND Nurse Practitioner Family
DX: G47.33 Obstructive sleep apnea (adult) (pediatric) (principal); E66.9 Obesity, unspecified; Z68.35 Body mass index [BMI] 35.0-35.9, adult